=== PATIENT | male | born 1985 | race Caucasian/White ===

== ENCOUNTER 2022-06-21 05:54 | Day surgery (SDC) | payer OTHER ==
[~2022-06-21] VITALS: Ht 185.4 cm; Wt 122.7 kg
[~2022-06-21 05:54] MED LIST: VALACYCLOVIR500 MG PO
--- NOTE | 2022-06-21 09:12 | NUR ---
06/21/22 0912 Salena Savage 0908 PATIENT ARRIVES TO PACU UNRESPONSIVE TO VERBAL STIMULI. RESP EVEN AND UNLABORED, MASK AT 6 LITERS.
--- NOTE | 2022-06-21 10:16 | NUR ---
SURY 1005: PT IS BACK TO DS FROM PACU. HE IS REPORTING BEING UNCOMFORTABLE, RATING THE PAIN IN HIS NOSE A 4/10. IS AT THE BEDSIDE. CALL LIGHT WITHIN REACH. WATER ON BEDSIDE TABLE. NO ADDITIONAL NEEDS OR CONCERNS.
[2022-06-21] MEDS ORDERED: CEPHALEXIN500 M1 PO (10:31)
[2022-06-21] MEDS ORDERED: HYDROCODON-ACE1 EA10 PO (10:32)
--- NOTE | 2022-06-21 11:06 | NUR ---
PT HAS MET ALL DC CRITERIA, HE WOULD LIKE TO GO HOME AT THIS TIME.
--- NOTE | 2022-06-21 11:24 | NUR ---
LE 1110: PT AND ARE GIVEN VERBAL AND WRITTEN DC INSTRUCTIONS. THEY VERBALIZE UNDERSTANDING. THERE ARE NO QUESTIONS AT THIS TIME. PT IS TAKEN TO PERSONAL VEHICLE VIA WC, WHERE HE IS ABLE TO TRANSFER HIMSELF WITHOUT ISSUE.
--- NOTE | 2022-06-21 11:39 | OR ---
[facility] [address], [place] [address] Signed DATE OF OPERATION: 06/21/2022 SURGEON: Hermes Thomas MD PREOPERATIVE DIAGNOSIS: Septal deformity, inferior turbinate hypertrophy. POSTOPERATIVE DIAGNOSIS: Septal deformity, inferior turbinate hypertrophy. PROCEDURE: Septoplasty with cautery of bilateral inferior turbinates. ANESTHESIA: General LMA; POUNCER, Liyah. PREOPERATIVE HISTORY: Vitor is a 37-year-old young man with chronic nasal obstruction, mainly right-sided, due to septal deformity and inferior turbinate hypertrophy, unresponsive to appropriate medications and outpatient therapy. He is taken to the operating room for the above-mentioned procedures. OPERATIVE PROCEDURE AND FINDINGS: After informed consent, the patient was taken to the operating room, placed in the supine position where general LMA anesthesia was induced. The patient and procedure were verified. The patient received preoperative intranasal oxymetazoline intravenous Ancef. Headlight speculum exam of the nasal cavity showed septal deformity to the right side. A large spur inferiorly. The inferior turbinates were nicely decongested after the oxymetazoline. The septum was injected with 1% lidocaine with epinephrine in submucoperichondrial mainly on the right side. Septal spur was then removed with Elke. Septum medialized. Airway improved in this manner. The inferior turbinates were then cauterized with a long handle needle point cautery starting on the left side. Multiple passes transmucosal on the medial and inferior surface of the inferior turbinate starting anteriorly extending all the way back posteriorly. Excellent decongestion and shrinkage of the turbinate were obtained, same procedure on the right inferior turbinate. Minimal bleeding stopped afterwards. Packing was then placed, trimmed Merocel in equal amount each side coated with Neosporin, tied anteriorly over a pad. The pharynx was suctioned clear of blood secretions. The patient was then awakened, extubated, and transported to recovery room Electronically Signed By: HERMES THOMAS MD 06/21/22 1139 PATIENT NAME: VITOR PICKENS OPERATIVE REPORT DATE OF : 81 REPORT #: [id number] PHYSICIAN: HERMES THOMAS MD PCP: CATY CUMMINS PA-C REPORT IS CONFIDENTIAL AND NOT TO BE RELEASED WITHOUT AUTHORIZATION [facility] [address] [place] [address] [place], [place] [address] Signed in good condition. No complications. BLOOD LOSS: Minimal. SPECIMEN: None. DRAINS: None. PACKING: One piece of Merocel in each nostril. Hermes Thomas MD GC/MODL /[id number] Copies: ~ Electronically Signed By: HERMES THOMAS MD 06/21/22 1139 PATIENT NAME: VITOR PICKENS OPERATIVE REPORT DATE OF : 81 REPORT #: [id number] PHYSICIAN: HERMES THOMAS MD PCP: CATY CUMMINS PA-C REPORT IS CONFIDENTIAL AND NOT TO BE RELEASED WITHOUT AUTHORIZATION
== END 2022-06-21 11:15 | disposition home or self-care (01) ==
LOC: OPS 05:54 → DS 05:54 → OPS 07:30
PROVIDERS: ATTEND Otolaryngology
PROC: 09BM8ZZ Excision of Nasal Septum, Via Natural or Artificial Opening Endoscopic (ICD-10-PCS; principal; 2022-06-21 08:20)
DX: J34.2 Deviated nasal septum (principal); J34.3 Hypertrophy of nasal turbinates; F17.200 Nicotine dependence, unspecified, uncomplicated; Z88.0 Allergy status to penicillin
CPT/HCPCS: J0131; J0690; J2001; J2704; J3010; J7121

== ENCOUNTER 2023-04-13 09:20 | Emergency (ER) | payer OTHER ==
[~2023-04-13] VITALS: Ht 185.4 cm; Wt 130.1 kg
[~2023-04-13 09:20] MED LIST changes: +CEPHALEXIN500 M1 PO; +HYDROCODON-ACE1 EA10 PO
[2023-04-13 09:56] LABS: BASOPHILS 1.1 % (0-2); EOSINOPHILS 1.1 % (0-6); HEMATOCRIT 48.7 % (35.0-50.0); HEMOGLOBIN 16.4 g/dL (12.0-18.0); LYMPHOCYTES 17.8 % (24-44); MCH 29.6 (27-36); MCHC 33.7 g/dl (30-36); MCV 87.7 fl (81-99); MONOCYTES 4.3 % (0-12); NEUTROPHILS 75.7 % (39-80); PLATELET COUNT 206 K/uL (140-440); RBC 5.55 M/ul (4.3-5.7); RDW 13.6 (10.5-15.0)
[2023-04-13 10:13] LABS: ALBUMIN 4.5 g/dL (3.4-5.0); ALBUMIN/GLOBULIN RATIO 1.29 (1.1-2.4); BILIRUBIN, TOTAL 0.8 ng/dL (0.2-1.0); BUN/CREATININE RATIO 16.5 (6.0-28.6); CALCIUM 9.4 mg/dL (8.5-10.1); CREATININE, SERUM 1.03 mg/dL (0.70-1.30)
[2023-04-13] MEDS ORDERED: ONDANSETRON ODT4 MG PO (11:12)
[2023-04-13] MEDS ORDERED: MORPHINE SULFAT15 MG PO (11:12)
[2023-04-13 12:16] VITALS: BP 144/98
== END 2023-04-13 12:16 | disposition home or self-care (01) ==
LOC: ED 09:20
PROVIDERS: Emergency Medicine
DX: N13.2 Hydronephrosis with renal and ureteral calculous obstruction (principal); Z88.0 Allergy status to penicillin; Z79.899 Other long term (current) drug therapy
CPT/HCPCS: 36415; 74176; 80053; 85025; 96374; 96375; 96376; 99284-25; J1170; J1885; J2405; J7030

== ENCOUNTER 2023-12-20 18:13 | Emergency (ER) | payer OTHER ==
[~2023-12-20] VITALS: Ht 185.4 cm; Wt 132.4 kg
[~2023-12-20 18:13] MED LIST changes: +MORPHINE SULFAT15 MG PO; +ONDANSETRON ODT4 MG PO
[2023-12-20] MEDS ORDERED: SODIUM CHLORIDE 0.9% 1,000 ML IV ONE (18:30)
[2023-12-20] MEDS ORDERED: KETOROLAC TROMETHAMINE 30 MG/ML VIAL IV ONE (18:30)
[2023-12-20] MEDS ORDERED: TAMSULOSIN HCL 0.4 MG CAP PO ONE (18:30)
[2023-12-20] MEDS ORDERED: ondansetron HCL 4 MG/2 ML VIAL IV ONE (18:30)
[2023-12-20 19:06] LABS: BASOPHILS 0.7 % (0-2); EOSINOPHILS 0.4 % (0-6); HEMATOCRIT 44.9 % (35.0-50.0); HEMOGLOBIN 15.7 g/dL (12.0-18.0); LYMPHOCYTES 13.9 % (24-44); MCH 29.9 (27-36); MCHC 34.9 g/dl (30-36); MCV 85.8 fl (81-99); MONOCYTES 4.4 % (0-12); NEUTROPHILS 80.6 % (39-80); PLATELET COUNT 198 K/uL (140-440); RBC 5.24 M/ul (4.3-5.7); RDW 13.7 (10.5-15.0)
[2023-12-20 19:24] LABS: ALBUMIN/GLOBULIN RATIO 1.21 (1.1-2.4); ANION GAP 11.3 (7-21); BILIRUBIN, TOTAL 0.6 ng/dL (0.2-1.0); BUN/CREATININE RATIO 19.37 (6.0-28.6); CALCIUM 9.2 mg/dL (8.5-10.1); CREATININE, SERUM 1.29 mg/dL (0.70-1.30); POTASSIUM 4.3 mmol/L (3.5-5.1); PROTEIN, TOTAL 7.3 g/dL (6.4-8.2)
[2023-12-20] MEDS ORDERED: ONDANSETRON ODT8 MG PO (19:26)
[2023-12-20] MEDS ORDERED: FLOMAX0.4 MG PO (19:26)
[2023-12-20] MEDS ORDERED: HYDROCODON-ACE1 EA11 PO (19:26)
[2023-12-20 20:45] LABS: BILIRUBIN, URINE NEGATIVE (negative); BLOOD/HGB, URINE LARGE (Negative); KETONE, URINE NEGATIVE (Negative); LEUK ESTERASE, URINE NEGATIVE (negative); NITRITE, URINE NEGATIVE (negative); PH, URINE 5.5 (5-7)
[2023-12-20] MEDS ORDERED: HYDROmorphone HCL 1 MG/ML SYR IV PRN (20:45)
[2023-12-20 20:51] LABS: EPITHELIAL CELLS, URINE SQUAMOUS 2+ /lpf (0-1+); RED BLOOD CELLS, URINE 21-40 /hpf (0-5)
[2023-12-20 20:52] LABS: CRYSTALS, URINE NONE SEEN (0-1+)
[2023-12-20 20:55] LABS: BACTERIA, URINE RARE /hpf (negative)
[2023-12-20 20:56] LABS: REFLEX CULTURE, URINE No (No)
[2023-12-20] MEDS ORDERED: ONDANSETRON 4 MG HOME.PACK SL ONE (21:15)
[2023-12-20] MEDS ORDERED: HYDROCODONE BIT/ACETAMINOPHEN 5/325 MG 1 TAB HOME.PACK PO ONE (21:15)
[2023-12-20 21:19] VITALS: BP 144/101
== END 2023-12-20 21:19 | disposition home or self-care (01) ==
LOC: ED 18:13
PROVIDERS: Emergency Medicine
DX: N20.0 Calculus of kidney (principal); G47.30 Sleep apnea, unspecified; Z79.899 Other long term (current) drug therapy; Z88.0 Allergy status to penicillin
CPT/HCPCS: 36415; 80053; 81001; 85025; 96374; 96375; 99284; A9270; J1170; J1885; J2405; J7030